=== PATIENT | female | born 1955 | race Caucasian/White ===

== ENCOUNTER 2020-06-27 16:44 | Emergency (ER) | payer OTHER ==
[2020-06-27] MEDS ORDERED: diphenhydrAMINE HCL 25 MG CAPSULE (FP) PO ONE ×2 (16:45→16:46)
[2020-06-27 17:08] VITALS: BP 138/91; PULSE 73; TEMP 97.7; BMI 29.8
[2020-06-27] MEDS ORDERED: FAMOTIDINE 20 MG TABLET PO ONE (17:28)
[2020-06-27] MEDS ORDERED: FAMOTIDINE 20 MG TABLET ONE (17:30)
== END 2020-06-27 18:00 | disposition home or self-care (01) ==
LOC: FER 16:44
DX: T78.40XA Allergy, unspecified, initial encounter (principal)
CPT/HCPCS: 99283-25

== ENCOUNTER 2020-08-25 18:55 | Emergency (ER) | payer OTHER ==
[2020-08-25 19:03] VITALS: BP 150/73; PULSE 76; TEMP 99; BMI 29.8
[2020-08-25] MEDS ORDERED: predniSONE 20 MG TABLET (UD) PO ONE (20:31)
[2020-08-25] MEDS ORDERED: predniSONE 20 MG TABLET (UD) ONE (20:33)
== END 2020-08-25 20:45 | disposition home or self-care (01) ==
LOC: FER 18:55
DX: L25.5 Unspecified contact dermatitis due to plants, except food (principal); S20.212A Contusion of left front wall of thorax, initial encounter
CPT/HCPCS: 71101-TC-LT-FY; 99284-25